=== PATIENT | female | born 1985 | race Two or more races ===

== ENCOUNTER 2017-09-10 15:46 | Inpatient (IN) | payer OTHER ==
[2017-09-10] VITALS (7 sets, daily range): BP systolic 108–115; BP diastolic 62–73
[~2017-09-10] VITALS: Ht 167.6 cm; Wt 111.2 kg
[2017-09-10 17:03] LABS: Eosinophils # (auto) 0.1 uL; Mean Corpuscular Volume 60.9 fL (80.0-100.0); Monocytes # (auto) 0.5 uL; Monocytes % (auto) 6.6 % (0.0-12.0); White Blood Cell 7.8 10^3/uL (4.4-10.8)
[2017-09-10 17:04] LABS: Basophils # (auto) 0 uL; Basophils % (auto) 0.6 % (0.0-2.0); Hematocrit 23.2 % (36.0-46.0); Lymphocytes # (auto) 2.4 uL; Lymphocytes % (auto) 30.8 % (10.0-50.0); Mean Corpuscular Hemoglobin 17.5 pg (28.0-32.0); Mean Corpuscular Hgb Conc. 28.7 g/dL (32.0-36.0); Neutrophils # (auto) 4.8 uL; Platelet Count (auto) 276 10^3/uL (140-450); Red Blood Cells 3.82 10^6/uL (4.0-5.20); Red Cell Distribution Width 19.5 % (11.8-14.3)
[2017-09-10 17:14] LABS: Hemoglobin 6.7 g/dL (12.2-16.2)
[2017-09-10 17:54] LABS: Hematocrit 23.9 % (36.0-46.0)
[2017-09-10 18:09] LABS: Hemoglobin 6.5 g/dL (12.2-16.2)
[2017-09-11] VITALS (9 sets, daily range): BP systolic 102–130; BP diastolic 64–83
[2017-09-11 02:47] LABS: Hemoglobin 6.8 g/dL (12.2-16.2)
[2017-09-11] MEDS ORDERED: MULT-228 PO (06:33)
[2017-09-11] MEDS ORDERED: FERR1TAB36 PO (06:34)
[2017-09-11 15:53] LABS: Hematocrit 27.4 % (36.0-46.0)
[2017-09-12] VITALS (7 sets, daily range): BP systolic 99–105; BP diastolic 49–57
[2017-09-12] MEDS: MULTIPLE VITAMIN TAB PO SCH (16:04)
[2017-09-12] MEDS: PANTOPRAZOLE 40 MG TAB PO SCH (16:05)
[2017-09-12] MEDS: FERROUS SULFATE 325 MG TAB PO SCH (18:13)
[2017-09-13 05:00] VITALS: BP 95/50
[2017-09-13 09:00] VITALS: BP 91/73
[2017-09-13] MEDS: MULTIPLE VITAMIN TAB PO SCH (09:54)
[2017-09-13] MEDS: FERROUS SULFATE 325 MG TAB PO SCH ×2 (09:54→17:35)
[2017-09-13] MEDS: PANTOPRAZOLE 40 MG TAB PO SCH (09:54)
[2017-09-13 10:00] LABS: Basophils # (auto) 0.1 uL; Eosinophils # (auto) 0.1 uL; Eosinophils % (auto) 1.2 % (0.0-7.0); Hematocrit 32.4 % (36.0-46.0); Hemoglobin 9.2 g/dL (12.2-16.2); Lymphocytes # (auto) 1.5 uL; Lymphocytes % (auto) 24.5 % (10.0-50.0); Mean Corpuscular Hemoglobin 18.1 pg (28.0-32.0); Mean Corpuscular Hgb Conc. 28.4 g/dL (32.0-36.0); Mean Corpuscular Volume 63.9 fL (80.0-100.0); Monocytes # (auto) 0.6 uL; Monocytes % (auto) 9.7 % (0.0-12.0); Neutrophils # (auto) 3.9 uL; Neutrophils % (auto) 63.6 % (37.0-80.0); Platelet Count (auto) 291 10^3/uL (140-450); Red Blood Cells 5.08 10^6/uL (4.0-5.20); White Blood Cell 6.1 10^3/uL (4.4-10.8)
[2017-09-13 10:07] LABS: Red Cell Distribution Width 23.6 % (11.8-14.3)
[2017-09-13 10:14] LABS: % Iron Saturation 4.2 % (15-50)
[2017-09-13 10:33] LABS: Folate (Folic Acid) > 24.00 ng/mL (5.38-24)
[2017-09-13 12:25] VITALS: BP 93/56
[2017-09-13 16:48] VITALS: BP 98/50
[2017-09-13 22:00] VITALS: BP 112/58
[2017-09-14 04:56] VITALS: BP 101/58
[2017-09-14] MEDS: PANTOPRAZOLE 40 MG TAB PO SCH (08:43)
[2017-09-14] MEDS: FERROUS SULFATE 325 MG TAB PO SCH (08:43)
[2017-09-14] MEDS: MULTIPLE VITAMIN TAB PO SCH (08:43)
[2017-09-14 09:00] VITALS: BP 97/53
[2017-09-14 13:00] VITALS: BP_SYST 104; BP_SYST 129; BP_DIAS 62; BP_DIAS 72
[2017-09-14] MEDS ORDERED: PANT40T PO (13:18)
[2017-09-14] MEDS ORDERED: FERROUS SULFATE 325 MG TAB PO SCH (14:00)
== END 2017-09-14 14:40 | DRG 812 ==
LOC: ER 15:46 → TELE 15:47 → TELE-EAST 20:18
PROVIDERS: ADMIT Specialist; ATTEND Internal Medicine
PROC: 30233N1 Transfusion of Nonautologous Red Blood Cells into Peripheral Vein, Percutaneous Approach (ICD-10-PCS; principal; 2017-09-10)
DX: D50.9 Iron deficiency anemia, unspecified (principal); D27.0 Benign neoplasm of right ovary; Z83.3 Family history of diabetes mellitus; Z98.84 Bariatric surgery status; Z87.11 Personal history of peptic ulcer disease
CPT/HCPCS: 36415; 36430; 76830; 76856; 82607; 82746; 83540; 83550; 85014; 85018; 85025; 86301; 86304; 86850; 86900; 86901; 86920